=== PATIENT | female | born 1985 | race Caucasian/White ===

== ENCOUNTER 2022-10-07 13:34 | Outpatient (CLI) | payer OTHER, SELFPAY ==
[2022-10-07 14:14] LABS: Appearance Urine Cloudy (Clear); Bilirubin Urine Negative (Negative); Blood Urine 3+ (Negative); Color Urine Yellow (Yellow); Glucose Urine Negative (Negative); Ketones Urine Negative (Negative); Leukocyte Esterase Urine 2+ (Negative); Nitrite Urine Negative (Negative); Protein Urine 2+ (Negative); Specific Gravity Urine >= 1.030 (1.000-1.030); Urobilinogen Urine 0.2 (0.2-1.0)
[2022-10-07 14:26] LABS: RBC Urine >100 (0-2); Squamous Epithelial Cell Urine Moderate (None-Few); WBC Urine >100 (0-5)
[2022-10-07 14:27] LABS: Bacteria Urine Moderate
== END 2022-10-07 13:35 | disposition home or self-care (01) ==
PROVIDERS: PCP Family Medicine; Visit Provider Obstetrics & Gynecology
DX: R35.0 Frequency of micturition (principal)
CPT/HCPCS: 81003; 81015; 87086

== ENCOUNTER 2022-11-17 14:56 | Outpatient (CLI) | payer OTHER, SELFPAY ==
--- NOTE | 2022-11-17 15:00 | CRLHL7_ITS ---
For Patients: As a result of the Cures Act, medical imaging exams and procedure reports are released immediately into your electronic medical record. You may view this report before your referring provider. If you have questions, please contact your health care provider. INDICATION: IUD placement. Lost threads. TECHNIQUE: Pelvic ultrasound. FINDINGS: The uterus measures 7.7 x 3.9 x 4.9 cm. The endometrial stripe measures 3 mm. The IUD is appropriately positioned within the uterus. No myometrial mass. No endometrial stripe thickening. Both ovaries are normal in size and appearance with the right measuring 5.5 x 2.3 x 2.7 cm and the left measuring 3.2 x 1.7 x 1.3 cm. Minimal free pelvic fluid likely physiologic. IMPRESSION: 1. IUD appropriately positioned. Normal endometrial stripe of 3 mm. 2. No myometrial mass. Normal sized ovaries. Small amount of free pelvic fluid likely physiologic. Dictated by Garrison Jauregui MD @ 11/17/2022 5:46:47 PM (Electronically Signed)
== END 2022-11-17 14:57 | disposition home or self-care (01) ==
LOC: US 14:57
PROVIDERS: PCP Family Medicine; Visit Provider Obstetrics & Gynecology
DX: T83.32XA Displacement of intrauterine contraceptive device, initial encounter (principal)
CPT/HCPCS: 76830

== ENCOUNTER 2024-02-28 10:48 | Outpatient (CLI) | payer OTHER, SELFPAY | END 2024-02-28 10:49 | disposition home or self-care (01) | LOC: NFLDREF 11:16 | PROVIDERS: PCP Family Medicine; Visit Provider Advanced Practice Midwife | DX: R35.0 Frequency of micturition (principal); Z13.6 Encounter for screening for cardiovascular disorders | CPT/HCPCS: 82465 ==

== ENCOUNTER 2024-02-29 07:59 | Outpatient (CLI) | payer OTHER, SELFPAY ==
--- NOTE | 2024-02-29 08:15 | US_ITS ---
Patient: CORRIE KLINE Facility:?[facility] Patient ID:?[id number] Site Patient ID:?[id number]. Site :?[id number] Study:?US-Pelvis TRANSVAGINAL-02/29/2024 8:32:03 AM Ordering Physician:SIMONA PERLA Final Report: INDICATION: IUD displacement. TECHNIQUE: Ultrasound pelvis transvaginal. COMPARISON: None. FINDINGS: Uterus: 7.5 x 4.4 x 5.0 cm. Normal echotexture of the myometrium. No masses. Retroverted and retroflexed position. Endometrium: An IUD is seen in appropriate position within the endometrial canal. Right ovary 4.7 x 1.6 x 3.2 cm (volume of 12.2 mL). Left ovary 4.3 x 1.6 x 2.5 cm (volume of 9.2 mL). No ovarian or adnexal masses. Color Doppler blood flow is seen within both ovaries. Cul-de-sac: No significant free fluid. IMPRESSION: 1. Appropriate position of the intrauterine device. 2. The uterus is retroverted and retroflexed. 3. Unremarkable sonographic appearance of the ovaries. Dictated by Rosa Lee MD @ 02/29/2024 3:37:44 PM Signed by:?Rosa Lee MD @02/29/2024 3:37:44 PM (Electronic Signature)
== END 2024-02-29 08:00 | disposition home or self-care (01) ==
LOC: US 07:59
PROVIDERS: PCP Family Medicine; Visit Provider Advanced Practice Midwife
DX: Z30.431 Encounter for routine checking of intrauterine contraceptive device (principal)
CPT/HCPCS: 76830

== ENCOUNTER 2024-03-06 09:59 | Outpatient (CLI) | payer OTHER, SELFPAY ==
--- OUTSIDE RECORDS SUMMARY | 2024-03-07 12:33 | XMS_ITS | Data Portability ---
Author Name Unknown Address [address] [place] [address] Phone [phone] Organization [facility] Address [address] [place] [address] Care Team Providers Care Vest Busheler Name Role Phone JUAN RAMONRAIMUNDO ANICETO Referring Provider [phone] Assessment No assessment recorded. Plan of Treatment Reminders Order Date Submit Date Provider Last Modified By Organization Details Last Modified Time Details Appointments None recorded. Lab urinalysis, dipstick 2022 023 [facility], [address], [address], [address], 3 09:27:06 unlisted lab - myco and ureaplasma (atypicals) -lc 2022 023 [facility], [address], [place], [address], 3 13:08:52 Referral None recorded. Procedures None recorded. Surgeries None recorded. Imaging None recorded. Medication Orders oxybutynin chloride ER 5 mg tablet,exte nded release 24 hr 2022 023 [facility], [address] [place] [address], [address], 3 09:39:35 Patient TargetsNo targets recorded. Patient Instructions Encounter Date Encounter Id Patient Instructions Last Modified By Organization Details Last Modified Time 04/18/2023 [id number] Overactive bladder (OAB), urge urinary incontinence (UUI): -Testing for Atypicals (mycoplasma and ureaplasma) given patients history of negative urine cultures with symptoms. Discussed that infection presents similar to a UTI. Handout provided. Will call with results. -Reviewed overactive bladder care pathway and gave handout. -Discussed first-line conservative management including timed voiding, urge suppression strategies, pelvic floor exercises, and avoidance of bladder irritants. -Discussed second-line therapies including pelvic floor physical therapy and OAB medications. -After hearing the options, patient would like to try oxybutynin ER 5 mg when she is bothered with her bladder. -Follow up in 3-4 months [email or web address] Not available 04/18/2023 09:39:16 Reason for Referral None Reported. Results Created Date Observation Date Name Description Value Unit Range Abnormal Flag LastModifiedBy Organization Detail LastModifiedTime 04/18/2004/18/2023 UA WITHO UT MICRO - CS URISC AN blood - uriscan NEGATI VE negati ve Not Available [facility] [address], [place], [address], 04/18/2023 09:27:06 04/18/20 23 04/18/2023 UA WITHO UT MICRO - CS URISC AN bilirubin - uriscan NEGATI VE mg/dL negati ve Not Available [facility] [address], [place], [address], 04/18/2023 09:27:06 04/18/20 23 04/18/2023 UA WITHO UT MICRO - CS URISC AN urobilinogen - uriscan NORMAL mg/dL normal Not Available [facility] [address] [facility] [address] [address], [place], [address], 04/18/2023 09:27:06 04/18/20 23 04/18/2023 UA WITHO UT MICRO - CS URISC AN ketones - uriscan NEGATI VE mg/dL negati ve Not Available [facility] [address] [facility] [address], [place], [address], 04/18/2023 09:27:06 06/28/20 23 04/18/2023 UA WITHO UT MICRO - CS URISC AN protein - uriscan NEGATI VE mg/dL negati ve Not Available [facility] [address], [place], [address], 04/18/2023 09:27:06 04/18/20 23 04/18/2023 UA WITHO UT MICRO - CS URISC AN nitrites - uriscan NEGATI VE negati ve Not Available [facility] [address] [facility] [address], [place], [address], 04/18/2023 09:27:06 04/18/20 23 04/18/2023 UA WITHO UT MICRO - CS URISC AN glucose - uriscan NEGATI VE mg/dL negati ve Not Available [facility] [address] [place] [address] [address], [place], [address], 04/18/2023 09:27:06 04/18/20 23 04/18/2023 UA WITHO UT MICRO - CS URISC AN pH - uriscan 7.00 5.00-9 .00 Not Available [facility] [address] [place] [address] [address], [place], [address], 04/18/2023 09:27:06 04/18/20 23 04/18/2023 UA WITHO UT MICRO - CS URISC AN sp. gravity - uriscan 1.02 1.01-1 .03 Not Available [facility] [address] [place] [address] [address], [place], [address], 04/18/2023 09:27:06 04/18/20 23 04/18/2023 UA WITHO UT MICRO - CS URISC AN leukocytes - uriscan NEGATI VE negati ve Not Available [facility] [address] [facility] [address], [place], [address], 04/18/2023 09:27:06 04/18/20 23 04/18/2023 UA WITHO UT MICRO - CS URISC AN color - uriscan YELLOW lt. yellow ;yello w Not Available [facility] [address] [address], [place], [address], 04/18/2023 09:27:06 04/18/20 23 04/18/2023 UA WITHO UT MICRO - CS URISC AN clarity - uriscan CLEAR clear Not Available [facility] [address] [address], [place], [address], 04/18/2023 09:27:06 04/18/20 23 04/18/2023 UA WITHO UT MICRO - CS URISC AN total urine volume (mL) 60 /mL Not Available [facility] [address] [address] [facility] [address], [place], [address], 04/18/2023 09:27:06 04/18/20 23 04/26/2023 UREAP LASMA /MYCO PLASM A HOMIN IS ureaplasma urealyticum NEGATI VE negati ve Not Available [facility] ([facility]) [address] [place], [address], 04/26/2023 13:08:52 04/18/20 23 04/26/2023 UREAP LASMA /MYCO PLASM A HOMIN IS mycoplasma hominis NEGATI VE negati ve Not Available [facility] ([facility]) [address] [place], [address], 04/26/2023 13:08:52 Result Notes None recorded. Procedures Surgical History Date Name Laterality Status Provider Name and Address Organization Details Recorded Time 3 Past Data Reviewed completed MICHAEL Willingham [address] [place] [address],[facility] [address], [place], [address], [facility] 04/17/2023 13:18:31 3 In and Out Catheterizati on- female completed MICHAEL Willingham [address] [place] [address],[facility] [address], [address], [facility] 04/18/2023 09:39:48 3 Past Data Reviewed cancelled Liliana Ford MICHAEL [address] [facility], [place], [address], [facility] 11/30/2022 13:08:53 3 In and Out Catheterizati on- female cancelled Liliana MICHAEL Ford [address] [facility],[address], [place], [address], [facility] 11/30/2022 13:07:01 delivery completed Not Available Health Note 11/07/2022 15:58:40 Imaging Results None recorded. Procedure Notes None recorded. Medical Equipment None Reported. Allergies Allergen ID Allergen Name Allergen Category Reaction Reaction Severity Criticality Documentation Date Start Date Code Code System Note Provider Name and Address Organization Details Recorded Time 150269 kiwi fruit extract food other Not available Not available 11/07/2022 55177 01 RxNorm n/a Not Available Health Note 15:58:40 No known drug allergies Medications Name Sig Start Date Stop Date Status Note LastModified by Organization Details LastModified Time prednison e 20 mg tablet 04/18 completed Not Available Not Available Not Available oxybutyni n chloride ER 5 mg tablet,ex tended release 24 hr Take 1 tablet every day by oral route in the morning for 30 days. active Not Available Not Available No t Available hydroxyzi ne HCl 25 mg tablet 04/18 completed Not Available Not Available Not Available nitrofura ntoin monohydra te/macroc rystals 100 mg capsule 04/18 completed HN: Patient reports no longer taking Not Available Not Available Not Available Vitals Date Recorded Body weight Provider Name an d Address Organization Details Last Updated DateTime 04/18/2023 52120.97 g Neida Harden [facility] 04/18/2023 09:15:21 Date Recorded Body mass index (BMI) Body height Provider Name and Address Organization Details Last Updated DateTime 04/18/2023 23.2 kg/m2 162.56 cm Not Available Health Note 09:11:06 Social History Question Answer Notes LastModified by Organizat ion Details LastModified Time Tobacco Smoking Status Never Smoker Not Available Health Note 04/16/2023 12:46:41 What Is Your Level Of Alcohol Consumption? Occasional [email or web address] Information not available 04/16/2023 What Is Your Level Of Caffeine Consumption? None [email or web address] Information not available 04/16/2023 How Much Tobacco Do You Chew? None [email or web address] Information not available 04/16/2023 Do You Or Have You Ever Used E-cigarettes Or Vape? Never Used Electronic Cigarettes [email or web address] Information not available 04/16/2023 Number Of Pregnancies 3 [email or web address] Information not available 11/07/2022 Number Of Vaginal Deliveries 1 [email or web address] Information not available 11/07/2022 Number Of Caesarean Sections 1 [email or web address] Information not available 11/07/2022 Could You Be ? No [email or web address] Information not available 11/07/2022 What Was The Date Of Your Most Recent Tobacco Screening? 04/18/2023 [email or web address] Information not available 04/16/2023 What Is Your Relationship Status? [email or web address] Information not available 04/16/2023 Are You Sexually Active? Yes [email or web address] Information not available 04/16/2023 Do You Or Have You Ever Used Smokeless Tobacco? Never Used Smokeless Tobacco [email or web address] Information not available 04/16/2023 Do You Use Any Illicit Or Recreational Drugs? No [email or web address] Information not available 04/16/2023 How Many Days In The Past Year Have You Consumed 4 Or More Drinks? 10 [email or web address] Information no t available 04/16/2023 Sex: Female Functional Status None recorded. Mental Status None recorded. Family History Relationship Description Onset Age of this Age Resolved Age Notes Father Family history of diabetes mellitus Father Family history of cardiac disorder Paternal Grandmother Family history of diabetes mellitus Paternal Grandmother Family history of cardiac disorder Paternal Grandfather Family history of cardiac disorder Medical History Condition Response High Blood Pressure N Kidney Stones N Depression N Lung Disease N GERD/Acid Reflux Y Sexually Transmitted Infection N Diabetes N Bleeding Disorder N Cancer N High Cholesterol Y Heart Disease N Gynecological History Statement/Question Response Irregular periods N Leaking urine with intercourse N Heavy periods N Sexually Active? Y Pain with intercourse N Obstetrics History GPAL:G 0 P 0 0 0 0 Immunizations Vaccine Type Date Status Provider Name and Address Organization Details Recorded Time SARS-COV-2 (COVID-19) vaccine, UNSPECIFIED 12/22/2021 completed Not Available Health Note 11/07/2022 15:58:44 influenza, unspecified formulation 08/21/2022 completed Not Available Health Note 11/07/2022 15:58:44 influenza, unspecified formulation 08/22/2022 completed Not Available Health Note 04/16/2023 12:46:45 SARS-COV-2 (COVID-19) vaccine, UNSPECIFIED 08/22/2020 completed Not Available Health Note 04/16/2023 12:46:45 Past Encounters Encounter ID Performer Location Encounter Start Date Encounter Closed Date Diagnosis/Indication Diagnosis SNOMED-CT Code [id number] MICHAEL Willingham [address] [address] 04/18/2023 09:11:00 04/18/2023 10:38:05 Increased frequency of urination [id number] Urgent hank crystal to urinate [id number] Health Concerns Section Related Observation LastModified by Organization Detai ls LastModified Time None Recorded Concern Status LastModified by Organization Details LastModified Time None Recorded Advance Directives Directive None Recorded Payers Encounter Date Sequence Insurance Name Policy Number Policy Mendoza Covered Member ID Mendoza Member ID Guarantor Name 04/18/2023 1 [employer] ([employer]O) [id number] Shameka Iglesias [id number] Shameka Iglesias Notes Date Note Type Note Provider Name and Address Organization Details Recorded Time 04/18/2023 text/html HPI Notes: 04/18/23: Patient referred for evaluation of urinary urgency and frequency. Reports strong and bothersome urinary urge and frequency. Reports she will have incontinence for a few days to a week or so and will be intermittent. Denies stress urinary incontinence. She thinks it may be stress related. She wakes up 0 times a night. She voids 5 times a day. She uses 0 pads per day. Denies history of recurrent urinary tract infections (although feels like it), kidney stones, and gross hematuria. , 1 vaginal and 1 . Denies symptomatic prolapse. Patient is sexually active, no painful intercourse. Past abdominal surgeries include: . Denies associated bowel issues (FI, IBS, etc.), regular BMs. Denies neurologic history. Denies smoking history. No caffeine use. Drinking a lot of water, usually over a liter. AZO helps a little bit. (DANYELLE-6):3, (IIQ-7):0 MICHAEL Willingham [address] [place] [address],[address], [place], [address], [facility] 04/18/2023 09:48:46 OBGyn Episode No OBEpisode recorded.
== END 2024-03-06 10:00 | disposition home or self-care (01) ==
LOC: NFLDREF 03-07 12:31
PROVIDERS: PCP Family Medicine; Referring Provider Family Medicine; Visit Provider Advanced Practice Midwife
DX: Z13.6 Encounter for screening for cardiovascular disorders (principal)
CPT/HCPCS: 80061

== ENCOUNTER 2024-05-13 06:03 | Day surgery (SDC) | payer OTHER, SELFPAY ==
[2024-05-13] VITALS (8 sets, daily range): BP systolic 107–138; BP diastolic 71–84; PULSE 60–81; RESP 16; TEMP 36.6–36.9; O2SAT 98–99; BMI 24.5
[2024-05-13] MEDS: LACTATED RINGERS 1000 ML 1,000 ML 100 ML IV ×2 (06:20→07:50)
[2024-05-13] MEDS: SODIUM CHLORIDE 0.9 % (FLUSH) 10 ML SYRINGE IVF (06:20)
[2024-05-13 06:45] LABS: Ur HCG Qualitative* Negative (Negative)
[2024-05-13 06:46] LABS: Hemoglobin* 14.1 gm/dL (12.0-16.0)
[2024-05-13] MEDS: BUPIVACAINE 0.5% 30 ML INJECTION (07:45)
[2024-05-13] MEDS: SILVER NITRATE APPLICATOR 1 EACH STICK..EA. TOPICAL (07:54)
--- NOTE | 2024-05-13 08:04 | W.ANESCHARGE ---
Anesthesia Charges Start Date/Time Anesthesia Start Date: 05/13/24 Anesthesia Start Time: 07:27 Stop Date/Time Anesthesia Stop Date: 05/13/24 Anesthesia Stop Time: 08:05
--- NOTE | 2024-05-13 08:08 | W.ANESCHARGE ---
Anesthesia Charges Start Date/Time Anesthesia Start Date: 05/13/24 Anesthesia Start Time: 07:27 Stop Date/Time Anesthesia Stop Date: 05/13/24 Anesthesia Stop Time: 08:05
--- NOTE | 2024-05-13 08:09 | PM.PROC ---
Procedure Note Time Seen by Provider: 08:09 Date Seen: 05/13/24 Date of procedure: 05/13/24 Will [facility] bill your pro fee for this procedure?: Yes Procedure: Preoperative diagnosis: 38 year-old with malpositioned IUD, suspected endometrial polyps. Postoperative diagnosis: Same Procedure: Hysteroscopy, IUD removal, Dilation and Curettage using the Truclear incisor Anesthesia: Conscious sedation, paracervical block. Surgeon: Kemi Stuart MD Powertrain Control Systems Engineer: None Estimated blood loss: 10 mL IV Fluid: 1000 mL Urine output: 200 mL Specimen: Endometrial curettings to pathology. Findings: Exam under anesthesia: Uterus: Retroverted position, less than 10 week sized, mobile, with no masses or nodularity palpable. Uterus sounded to 10 cm. No adnexal masses or nodularity palpable. On hysteroscopy: The right side of the IUD appeared to be embedded in a polyp/the right cornual area. IUD strings were within the endometrial canal. There appeared to be polypoid masses on the anterior aspect of the fundus of the uterus. Procedure: Shameka was taken to the operating operating room more conscious sedation was found to be adequate. The patient was placed on in the dorsal lithotomy position and an exam under anesthesia was performed with findings stated above. She was then prepped and draped in a normal sterile manner. The bladder was drained with straight catheterization. A bivalve speculum was placed in the vagina.The paracervical block was placed using 0.5% Marcaine, 10 mL was injected at the 4 and 8 o'clock positions on the cervix. The anterior lip of the cervix was grasped with a single-tooth tenaculum. The cervix dilated to Hegar 6. The uterus sounded to 10 cm. The Truclear hysteroscope was advanced into the uterus. A diagnostic hysteroscopy was performed with normal saline as the insufflation medium. Findings are stated above. A hysteroscopic graspers was advanced into the uterus to grasp the IUD strings and the IUD removed without difficulty. The Truclear incisor was then advanced through the camera. The curettage was performed with the incisor over an approximately 2 minutes. The incisor was then removed. The endometrial cavity appeared normal. Saline deficit at the end of the procedure 65 mL. Total saline used 835 mL. The hysteroscope, single-tooth tenaculum were removed. Finish Repair Worker nitrate was used for hemostasis. The speculum was removed from the vaginal canal. The patient tolerated the procedure well. Sponge, lap and instrument counts were correct x2 at the end of the procedure. The patient was taken to the recovery area in stable condition.
== END 2024-05-13 09:59 | disposition home or self-care (01) ==
LOC: OR 06:04
PROVIDERS: PCP Family Medicine; Visit Provider Obstetrics & Gynecology
PROC: 0UDB8ZZ Extraction of Endometrium, Via Natural or Artificial Opening Endoscopic (ICD-10-PCS; CPT 58558; principal; 2024-05-13 07:15)
DX: T83.32XA Displacement of intrauterine contraceptive device, initial encounter (principal); N84.0 Polyp of corpus uteri
CPT/HCPCS: 58558; 58579; 00952; 36415; 81025; 85018; 86850; 86900; 86901; 88305; A9270; J0665; J1100; J1200; J1885; J2250; J2405; J2704; J3010; J3490; J7120